=== PATIENT | female | born 2000 | race Caucasian/White ===

== ENCOUNTER 2021-03-08 09:00 | Outpatient (RCR) | payer BC, SELFPAY ==
--- NOTE | 2021-03-08 10:15 | BH.SGPN.GN ---
Behaviors/Verbalizations/Mental Status: []Eye contact is good. Motor activity is appropriate. Appearance is casual. Speech is Appropriate. Mood is anxious. Affect is constricted. Thoughts are linear and logical. No evidence of psychosis. Client Response/Progress/Benefit: []Pt was a passive participant in group discussion and activity. Attentive during psychoeducation on factors that build resilience. Peers defined resilience and also identified what could impact resilience which included: family, internal coping skills, beliefs, hope, and personality type. Pt reports reaching out for help and bravery make pt resilient. Pt benefited by increasing awareness on the role of resilience in mental health and factors that can help build resiliency. First day of IOP tx. Will continue IOP tx to prevent decompensation, learn healthy coping skills, and improve daily functioning. Narrative Note: []
--- NOTE | 2021-03-08 11:20 | BH.SGPN.GN ---
Behaviors/Verbalizations/Mental Status: []Client alert and oriented, neat and casually dressed and groomed. Eye contact good. Motor activity appropriate. Speech within normal limits. Affect constricted, mood anxious and depressed. Thoughts linear, logical, no signs of hallucinations or delusions. Client Response/Progress/Benefit: []Client new to IOP tx and responded well to session, engaged and attentive throughout. Client participated in the discussion of how each resiliency component can help increase personal resiliency, taking notes throughout. Client remained mostly passive but was able to work within the small group to identify ways to practice each of the resiliency traits reviewed. Client shared she would like to focus on improving resilience trait of ?nurturing a positive view of self? as she has struggled with this recently. Client would like to continue working on this resiliency trait by practicing more consistent use of positive self-talk statements. Appeared to benefit from reflecting on importance of each resilience trait and identifying strategies to strengthen resilience. Will continue IOP tx to maintain safety, further reduce anxiety and depression, and improve daily functioning. Narrative Note: []
--- NOTE | 2021-03-10 09:00 | BH.SGPN.GN ---
Behaviors/Verbalizations/Mental Status: []Eye contact is fair. Motor activity is appropriate. Appearance is casual. Speech is Appropriate. Mood is anxious. Affect is incongruent-smiling. Thoughts are linear and logical. No evidence of psychosis. Reviewed daily check in sheet and pt reports 2/5 for suicidal thoughts and 0/5 for intent. Client Response/Progress/Benefit: []Client responded well to session, receptive to feedback and engaged. Client reports feeling anxious this morning. Client stated her biggest stressor right now is worrying about school starting in the fall. Client stated she feels anxious in social situations and worries about her ability to do well. Client identified her positives as showing up to IOP, even thought groups make her anxious, and self-report of reduced suicidal ideations. Appeared to benefit from stepping out of her comfort zone and connecting with others. Will continue IOP tx to prevent decompensation, reduce SI, and gain healthy coping skills. Narrative Note: []
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
[2021-03-10 11:14] VITALS: BP 112/63; PULSE 75
--- NOTE | 2021-03-10 11:15 | BH.SGPN.GN ---
Behaviors/Verbalizations/Mental Status: []Client alert and oriented, casually dressed and groomed. Eye contact poor. Motor activity appropriate. Speech within normal limits. Affect constricted, mood anxious. Thoughts linear, logical, no signs of hallucinations or delusions. Client Response/Progress/Benefit: []Client passive participant in session AEB pt providing limited input during session however appeared to listen attentively to others . Client remained attentive during discussion about the 4 A's of managing stress and discussed connecting with the various benefits of each. Client reported she would like to work on the strategy of accepting that she can't control what's going on with her family. Client stated she will use thought challenge to help manage her stressors. Client seemed to benefit from increased awareness of the impact of stress on mental health and increasing repertoire of stress management strategies. Will continue IOP tx to prevent decompensation, decrease anxiety and increase healthy coping. Narrative Note: []
--- NOTE | 2021-03-10 12:28 | PCM.BH.PSYEV ---
Psychiatric Evaluation Initial Evaluation Initial Evaluation: History of Present Illness: [] The patient is a 20-year-old single female who was referred to the [facility] behavioral health IOP program by her psychiatrist due to worsening depression and anxiety. The patient was recently admitted to a psychiatric unit in November 2020. At that time she attempted suicide by taking an overdose of Tylenol but was not in the ICU. In January 2021 the patient attempted suicide by taking a handful of Lexapro but she told her mother but no one else and did not receive treatment for this. She currently lives with her parents and her 26-year-old sister and they get along well. She is currently working at a [employer] for the past year but she starts a new job in a few days at [employer] which she is looking forward to. The patient cannot identify any triggers to either of her suicide attempts. She states that her depression was worsening in the past month until few days ago when she started feeling a little better because she got 3 kittens and loves animals. She is enjoying being with her kittens but not much else right now. She graduated high school 1 year ago but did not attend college. 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 Other stressors include her recent job because it was social and the patient has significant social anxiety. She has been having some trouble doing her activities of daily living lately. She endorses feeling worthless but denies hopelessness. She also denies guilt. She describes her mood as sad and sometimes she cries. She has low motivation and has been isolating herself. Her sleep is okay at 8 hours a night and her energy level, appetite and concentration are all normal. She admits to passive, fleeting suicidal ideation for the past 4 days. She has had only passive suicidal thoughts since February 12, 2021 when she made her second suicide attempt. She denies a plan for suicide also. She has a history of cutting and her most recent episode of cutting was in November just before her psychiatric admissions. This was on her hip but no stitches were required. She has not been exercising but used to enjoy riding her bike. She is a worrier by nature and has severe social anxiety since she was a child. She denies active suicidal ideation, plan for suicide, homicidal ideation, hallucinations, delusions or symptoms of codie. She also denies panic attacks, OCD, eating disorder, trauma, PTSD or seizure. Current Psychiatric Medications: [] Lexapro 20 mg p.o. daily (started 2 weeks ago and the dose was increased to 20 mg 1 week ago); Abilify 10 mg p.o. daily (was on 15 mg of Abilify since her admission in November 2020 and her doctor is currently weaning her off the Abilify after starting Lexapro). Past Psychiatric History: [] The patient had 1 psychiatric admission in November 2020 with depression and a suicide attempt by overdose on Tylenol. She has had 2 suicide attempts overall and the second 1 was in January 2021 which was a suicide attempt by overdose on a handful of Lexapro for which no treatment was obtained. She has had counseling since age 18 and at that time she had a for about 1 year. She then stopped counseling and restarted it after her psychiatric admission in November 2020. She is currently seeing her counselor once a week and has found this to be helpful. She has a psychiatrist which she has had for less than 1 month. She was first depressed around age 12 and 6 grade and she took her first medications at age 20 in November 2020. She first cut herself at age 14 and has cut on and off since then but has never required stitches. She uses a scissors to cut herself. She bruised herself 1 time 3 years ago only. Her past medications include only Abilify and her current medication Lexapro. Substance Use History: [] Non-smoker. No vaping. No marijuana use. No drugs ever. No alcohol use. No rehab ever. Allergies: [] No known allergies Medications: [] Synthroid plus psych meds as above. Past Medical History: [] Hypothyroidism diagnosed in October 2020; no other illnesses or surgeries. She is a 0 para 0 with regular menstrual periods and is not sexually active and is not on any control. Family Psychiatric History: [] Mother is 50 years old and father is 52 years old and they are healthy. Father and sister have anxiety. Mom, maternal grandfather and brother have depression. Mom had 1 suicide attempt in the past when she was around 20. Patient has a second cousin on her mother side who committed suicide. No substance issues known in the family. Personal/Social History: [] The patient was born and raised in [place] and describes her childhood as good. Her parents are in were and are loving. The patient is the youngest child and she has a brother 5 years older, sister 7 years older, a brother 10 years older than her. She is close to her sister. She denies any physical, verbal or sexual abuse ever. School was hard for her because of her social anxiety but she denies separation anxiety. She had friends in school and graduated high school. 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 She has worked several jobs including [employer] for a year and [employer] in the past and she plans to return to [employer] in a few days. She identifies as heterosexual but has never had any serious boyfriends and is not sexually active. Legal History: [] Review of Systems: [] Vital Signs: [] Mental Status Examination: [] Diagnoses: [] Crockett I: [] Crockett II: [] Crockett III: [] Crockett IV: [] Plan: []
--- NOTE | 2021-03-10 12:38 | PCM.BH.PSYEV ---
Psychiatric Evaluation Initial Evaluation Initial Evaluation: Continuing initial psychiatric evaluation. Legal History: [] No arrests. Has route salesman and driver's license. No DUIs. No . Review of Systems: [] Negative except as noted in present illness. Vital Signs: [] Reviewed in nurses notes. Mental Status Examination: [] Patient is a 20-year-old female who is seen wearing a mask due to the pandemic and is casually dressed and groomed with good hygiene. She has no psychomotor agitation or retardation. Eye contact is good and speech is normal rate and rhythm and fluent with no pressure. Mood is depressed. Affect is constricted. Thought process is goal-directed and organized. Thought content: There is evidence of passive, fleeting suicidal ideation. There is no evidence of passive thoughts of . There is no evidence of active suicidal ideation, plan for suicide, homicidal ideation, hallucinations or delusions. Reality testing is intact. Intelligence is average. Judgment is intact. Insight: Limited. Impulsivity: High. Diagnoses: [] 1. Major depressive disorder, recurrent, severe without psychosis 2. Social anxiety disorder (F 40.11) 3. Generalized anxiety disorder 4. Cluster B traits 5. Recently diagnosed hypothyroidism 6. Work, school issues, primary support Plan: [] The patient will start the behavioral health IOP program at [facility] as the structure, support, education, and group therapy will hopefully prevent worsening of the patient's symptoms which might require rehospitalization. She felt safe during the interview and if it anytime she does not feel safe she will let us know or go to the emergency room. The risks, options, possible complications and side effects of medications were discussed with the patient and she understands accepts these. No medication changes were made today as her Lexapro was increased 1 week ago. She will continue to wean her Abilify as ordered by her outpatient psychiatrist. She agrees to try to ride her bike or walk in order to help improve her mood. She will continue to follow-up with outpatient providers. I will see the patient in follow-up in 1 to 2 weeks.
--- NOTE | 2021-03-10 12:47 | BH.DR.ITP ---
Initial Treatment Plan Patient Information Visit Information: ADMISSION DATE: EXPECTED LOS: 4-6 weeks Problems/Symptoms Problem #1:: Depression Symptom:: Sadness, crying, lack of motivation, isolation, anhedonia, passive fleeting suicidal ideation Problem #2:: Anxiety Symptom:: Worry, avoidance of social functions, rumination
--- NOTE | 2021-03-11 09:01 | BH.SGPN.GN ---
Behaviors/Verbalizations/Mental Status: []Pt eye contact good, casually dressed, motor activity appropriate, speech normal rate and tone, mood anxious, congruent affect, thoughts linear and intact, no evidence of delusions or hallucinations. Reviewed client?s symptom tracker, pt indicates a 2/5, with 5 being severe, for suicidal thoughts and a 0/5 for suicidal intent. This is below pt's suicidal baseline for suicidal thoughts. Client Response/Progress/Benefit: []Pt responded well to session AEB pt listening attentively to peers, and openly sharing thoughts and feelings. Pt identified mental health positive as attending IOP. Additional mental health positive as distracting self from suicidal thoughts last night. pt reported current stressor is college classes starting in March. pt reported anxious about having to start school. Pt seemed to benefit from support from peers. Progress noted with pt using skills to successfully manage suicidal thoghts. Pt to continue IOP to increase healthy coping, increase confidence and prevent decompensation. Narrative Note: []
--- NOTE | 2021-03-11 10:02 | BH.SGPN.GN ---
Behaviors/Verbalizations/Mental Status: []Eye contact is good. Motor activity is appropriate. Appearance is casual. Speech is Appropriate. Mood is anxious and depressed. Affect is congruent. Thoughts are linear and logical. No evidence of psychosis. Client Response/Progress/Benefit: []Pt was an attentive participant though mostly passive throughout group discussion, willingly engaged during activity. Attentive during psychoeducation and taking notes. Reflected connecting with topic of personal pitfalls and how they can impede mental health treatment progress. Continuing to adjust to treatment environment and so reports struggling to provide active input. Pt and peers provided examples of personal pitfalls or setbacks that impact mental health which included; isolation, avoidance, procrastination, denial, poor self-care, and ruminating on externals. During experiential activity pt along with peers identified several pitfalls from the activity that are also associated with mental health which included; poor communication, assumptions, lack of awareness, negative self-talk, fear of failure, and personalizing. Did well to engage more during the activity. Benefited from group by increasing awareness of pitfalls which can impact mental health. Pt will continue in IOP to maintain safety, continue to provide a supportive environment, further improve mood stability, and promote healthy skill application. Narrative Note: []
--- NOTE | 2021-03-11 11:00 | BH.SGPN.GN ---
Behaviors/Verbalizations/Mental Status: []Client alert and oriented, casually dressed and groomed. Eye contact good. Motor activity appropriate. Speech within normal limits. Affect congruent, mood anxious and content. Thoughts linear, logical, no signs of hallucinations or delusions. Client Response/Progress/Benefit: []Client receptive of session, engaged throughout AEB client actively listening and contributing to discussion, as well as taking notes. Client completed worksheet identifying personal pitfalls impacting mental health progress. Client identified the following pitfalls: isolation, not communicating her emotions with supports, and mind-reading. Group learned different coping skills to help manage pitfalls. Client will work on overcoming isolation by going outside when she is feeling depressed. Appeared to benefit from identifying personal pitfalls and strategies to overcome these pitfalls. Will continue IOP tx to prevent decompensation, learn healthy coping skills, and increase self-awareness. Narrative Note: []
--- NOTE | 2021-03-11 14:11 | BH.MDN_ITS ---
Multi-Disciplinary Note - Note 30-min Individual Time Started:: 11:55 Date: 03/11/21 Purpose of session/treatment goals addressed:: The purpose of this session was to gather information on client's current stressors, symptoms, mental health tx hx, and treatment goals. Another goal was to build rapport and provide psychoeducation. Eye Contact:: Good Motor Activity:: Appropriate, Restless Appearance:: Neat, Casual Speech:: Appropriate Mood:: Anxious Affect:: Congruent Thoughts:: Linear, Logical, No evidence of hallucinations/delusions noted Staff Interventions:: Therapist used active listening and asked open-ended questions to explore client's current stressors, symptoms, history, and treatment goals. Therapist used strengths perspective to build rapport, identify resilience factors, and provide emotional support. Therapist provided psychoeducation on cognitive distortions and mental health. Therapist gave client encouragement and normalized the impact that mental health has on functioning. Client Response:: Client responded well to session, open to meeting with therapist. Client was referred to the [facility] program by her outpatient psychiatrist due to worsening depression and anxiety. Client reports that she has struggled with depression since the age of 12 and began cutting herself with scissors around age 14. Reports doing so ?off and on? since that time. Reports first seeing a counselor for her mental health around age 18 for about a year and began receiving counseling again in November after attempting to overdose on Tylenol. Reports she was admitted at the time and had her stomach pumped. She began working with [facility] [id number] in [place] for outpatient psychiatry and counseling following this attempt. However, in January again attempted overdose, this time with her psychiatric medications. Reports she vomited the medication up and did not seek medical care afterwards. Client appears to have poor insight into her own triggers as she reports not really knowing what led to the attempts. Reports having a positive relationship with her parents and older sister whom she lives with. Only stressor identified is her brother as he is struggling with his own mental health and has been estranged from the family as a result as he does not wish to seek treatment. Client reports that he moved out of the house approximately 6 months ago. Noted that although things have been less stressful since he moved out, she worries about him. Additionally, noted beginning a new job at [employer] and is working with her best friend. Shared that she enjoys this job but at times struggles with anxiety about being around other people while at work. Discussed wanting to improve daily functioning, reduce suicidal ideation, and find more ways of effectively coping. Client noted struggling with assuming others do not like her or are judging her and was receptive of psychoeducation introducing cognitive distortions. Willing to review and identify common distortions she uses for homework Risks/Concerns:: Client denies any active suicidal ideations, plan, and intent as of 03/11/21. Protective factors include healthy supports and goals for her future. Reports motivation to improve mental health sx management. Progress Toward Goals/Plan:: Client's first week of IOP, reports she is finding the supportive group environment to be helpful and that she has been able to relate to others in the program. Client endorses some anxiety about sharing in the group environment. Endorses a depressed mood, anhedonia, apathy, recent self-harming urges, low self-esteem, ruminations, and constantly feeling anxious. Client's symptoms have been impacting her social functioning and ability to function at baseline. Will continue IOP tx to prevent decompensation, reduce intensity of symptoms, and improve daily functioning. Time Stopped:: 12:13
--- NOTE | 2021-03-11 14:13 | BH.MTP ---
Master Treatment Plan - Patient Information Program Physician:: Dr. Ly Lawson Primary Therapist:: JAMES Menon - Psychiatric Diagnoses Psychiatric Diagnoses:: 1. Major depressive disorder, recurrent, severe without psychosis. 2. Social anxiety disorder (F 40.11). 3. Generalized anxiety disorder Diagnosis Code(s):: F40.11, F33.2 - Estimated LOS Estimated LOS (in weeks):: 6 Problem/Goal #1 - Problem/Goal #1 Stated Goal:: Client will reduce depressive symptoms, self-harm and SI, and negative self-talk due major depressive disorder. Description of Barriers: Client has a history of two previous suicide attempts and she reports a history of self-harming behaviors. Client states knowledge of few healthy coping skills. Client has history of past treatment inconsistency and negative thought patterns that reinforce depression. Functional Impact: Client is a 20-year-old female with a history of MDD and Social Anxiety Disorder. Client has history of two previous suicide attempts with one resulting in hospitalization. Most recent attempt being 01/2021. Client was referred to [facility] by her outpatient psychiatrist due to worsening suicidal ideation and depression, with limited benefit from traditional counseling. Client has a long-standing history of depression and new history of SI beginning in November of this past year in which client had her first overdose attempts. Denies any current plan or intent. Client endorses apathy, low energy, low motivation, hopelessness, anhedonia, rumination, worry, and avoidant behaviors. Client also uses cutting to cope with mental health symptoms and stressors. Client's symptoms have been impacting her ability to function at home, socially, and at work. Goal Relevant Strengths/Supports: Client is established with outpatient services through [facility]. Client appears to be open to learning healthy coping skills and improving her mental health. - Objectives Objective #1 Stated Objective: Client will learn and utilize 2-3 healthy coping strategies to better manage depressive symptoms as shown by reduced DSM-5 scores. Interventions: Through group and individual sessions, therapist will help client identify triggers and warning signs of depression. Therapist will teach client various coping skills to manage her symptoms and give client tangible resources to use to regulate emotions. Therapist will provide psychoeducation on cognitive distortions and maintenance cycles and strategies to break unhealthy maintenance cycles Discharge Criteria: Client will have met this goal when she can report learning and using at least 2 coping skills to manage depressive symptoms and show a reduction in DSM-5 symptoms. Target Date: 04/21/21 Review Date: 04/07/21 Objective #2 Stated Objective: Client will identify 2 triggers and 2 coping skills to use when client experiences mood dysregulation and has increased urges to engage in unhealthy coping skills. Interventions: Through individual and group counseling client will be provided with education on healthy coping skills to manage mood symptoms, impulse, and crisis behaviors. Therapist will provide information on healthy alternatives to emotion release. Therapist will also engage client to use self-compassion while working to change behaviors. Discharge Criteria: Client will have accomplished this goal when client can identify at least 2 triggers and 2 coping skills to increase mood stability and reduce unhealthy action urges. Target Date: 04/21/21 Review Date: 04/07/21 Problem/Goal #2 - Problem/Goal #2 Stated Goal:: Client will reduce anxiety symptoms while increasing ability to function on daily basis. Description of Barriers: Client has a history of two previous suicide attempts and she reports a history of self-harming behaviors. Client states knowledge of few healthy coping skills. Client has history of past treatment inconsistency and negative thought patterns that reinforce depression. Functional Impact: Client is a 20-year-old female with a history of MDD and Social Anxiety Disorder. Client has history of two previous suicide attempts with one resulting in hospitalization. Most recent attempt being 01/2021. Client was referred to [facility] tx by her outpatient psychiatrist due to worsening suicidal ideation and depression, with limited benefit from traditional counseling. Client has a long-standing history of depression and new history of SI beginning in November of this past year in which client had her first overdose attempts. Denies any current plan or intent. Client endorses apathy, low energy, low motivation, hopelessness, anhedonia, rumination, worry, and avoidant behaviors. Client also uses cutting to cope with mental health symptoms and stressors. Client's symptoms have been impacting her ability to function at home, socially, and at work. Goal Relevant Strengths/Supports: Client is established with outpatient services through [facility]. Client appears to be open to learning healthy coping skills and improving her mental health. - Objectives Objective #1 Stated Objective: Client will identify 2-3 cognitive distortions that lead to rumination and learn 2-3 ways to manage these thoughts to better manage anxiety Interventions: Therapist will provide education on the most common cognitive distortions and teach client the connection between thoughts, emotions, and feelings. Therapist will assist client in identifying, challenging, and replacing dysfunctional thoughts with positive, more realistic thoughts. Therapist will use CBT and DBT techniques to help client gain awareness of thinking errors and learn how to more effectively handle negative thoughts. Therapist will also use self-compassion to help client set more realistic expectations for herself. Discharge Criteria: Client will have accomplished this goal when can identify at least 2 cognitive distortions and at least 2 coping skills to manage negative thoughts. Target Date: 04/21/21 Review Date: 04/07/21 Objective #2 Stated Objective: Client will identify 2-3 anxiety triggers and 2 coping skills to use when feeling anxious to manage anxiety as shown by decreasing her avoidance behaviors and DSM-5 scores for anxiety. Interventions: Therapist will provide education on anxiety, avoidance behaviors, and maintenance cycles. Therapist will help client explore personal symptoms and warning signs of anxiety. Therapist will teach client coping skills to improve emotional regulation, mindfulness, and distress tolerance to help client cope with anxiety in the moment. Discharge Criteria: Client will have accomplished this goal when she can identify at least 2 triggers and report using 2 coping skills to manage anxiety. Additionally, client will have accomplished this goal when her avoidance behaviors and DSM-5 scores show a reduction. Target Date: 04/21/21 Review Date: 04/07/21
--- NOTE | 2021-03-15 09:00 | BH.SGPN.GN ---
Behaviors/Verbalizations/Mental Status: []Client alert and oriented, neatly dressed and groomed. Eye contact good. Motor activity appropriate. Speech within normal limits. Affect congruent, mood euthymic. Thoughts linear, logical, no signs of hallucinations or delusions. Reviewed client?s symptom tracker. Client was 2/5 for thoughts of suicide and 0/5 for risk of suicide. Future oriented and positive today. Client Response/Progress/Benefit: []Client responded well to session, attentive and engaged. Client reports feeling hopeful this morning. Client's check-in was brief, but client had a couple of wins over the weekend. Client shared she got to hear from her brother who hasn't really been in my life lately and client has been working through her suicidal ideations. Client reports she has been using self-talk and support from friends to help client reduce SI and negative thinking. Client did not report any stressors today. Appears less anxious in group setting as she is talking more often and laughing with peers. Appeared to benefit from connecting with others and reflecting on wins. Will continue IOP tx to prevent decompensation, learn healthy coping skills, and improve daily functioning. Narrative Note: []
--- NOTE | 2021-03-15 10:15 | BH.SGPN.GN ---
Behaviors/Verbalizations/Mental Status: [] Eye contact is good. Motor activity is appropriate. Appearance is casual. Speech is Appropriate, soft, limited input provided. Mood is anxious. Affect is constricted. Thoughts are linear and logical. No evidence of psychosis. Client Response/Progress/Benefit: [] Pt was an attentive participant in group discussion and activity, mostly passive throughout though taking notes. Attentive during psychoeducation on external coping skills and how coping skills can positively and negatively impact mental health. Pt listening as peers provided their thoughts and insights on the definition of coping skills. Continues to struggle with anxiety about engaging in group setting. Pt listening to peers identify barriers to using healthy coping skills which included; it?s easier, comfortable, habitual, or they don?t know other ways of coping. More engaged and willing to work within small group to complete challenge activity requiring use of several coping skills. Did well to provide and receive supportive feedback. Benefited from increased awareness of coping skills, benefits in using healthy coping skills, and common coping skill barriers. Will continue in IOP to maintain safety, continue to decrease anxiety, stabilize mood, and increase heathy coping. Narrative Note: []
--- NOTE | 2021-03-15 11:15 | BH.SGPN.GN ---
Behaviors/Verbalizations/Mental Status: []Client alert and oriented, casual dress, hygiene tended to. Eye contact fair. Motor activity appropriate. Speech within normal limits. Affect constricted, mood anxious. Thoughts linear, logical, no signs of hallucinations or delusions. Client Response/Progress/Benefit: []Client responded well to session, actively listening and providing examples. Group discussed the different categories of coping skills which included distraction, emotional release, grounding, self-love, and thought challenging. Client participated in creating a coping skills ?menu? from the five categories of coping skills. Client's coping skill menu included: walking, exercise, positive affirmations, and breathing techniques. Appeared to benefit from increasing repertoire of healthy coping skills. Will continue tx to improve self-esteem, increase healthy coping and prevent decompensation.
--- NOTE | 2021-03-17 07:55 | BH.MDN ---
Multi-Disciplinary Note - Note 45-min Individual Time Started:: 10:35 Date: 03/17/21 Purpose of session/treatment goals addressed:: To work on goal #1 & #2 of client's tx plan by reviewing and practicing reframing distortions client identified for homework . Another goal was to provide psychoeducation on safety behaviors, exposure therapy and the fear ladder. Eye Contact:: Good Motor Activity:: Appropriate Appearance:: Neat, Casual Speech:: Appropriate Mood:: Anxious, Depressed Affect:: Congruent Thoughts:: Linear, Logical, No evidence of hallucinations/delusions noted Staff Interventions:: Therapist used active listening and asked open ended questions to gather information regarding current sx, stressors, and common distortions identified. Therapist helped client identify impacts of distortions she uses on her mental health and worked to challenge and reframe identified distortions. Therapist provided psychoeducation on exposure therapy and provided client with a fear ladder exercise to complete for homework. Client Response:: Client responded well to session, open to meeting with therapist. Client stated that the past few days had been ?rough? but that she is feeling better today. Shared that she has been experiencing increased suicidal ideation about ?slitting my wrists? but denies any plan or intent. Noted taking steps to reach out to supports, play with her cats, and use positive self-talk when feeling this way which had been helpful. Upon further discussion, Client shared a primary trigger for her suicidal thoughts is ongoing difficulties in managing social anxiety. Client explained ?I don?t like who I am or my personality. I?m too shy, I want to be more outgoing?. Worked with therapist on reviewing the distortions client identified for homework and identifying how her distorted thoughts reinforce social anxiety which results in increase SI. Client Connected with psychoeducation reviewing cognitive triangle and identified that distorted thoughts of ?what if people think I sound stupid or what I say isn?t right?? cause client not to speak up which reinforces negative thoughts about self. Receptive of beginning to work with therapist on challenging and replacing these distortions, noting ?I wouldn?t election judge someone else if they messed up or thing that they?re stupid so there?s no evidence that they would think that about me?. Noted wanting to work on reducing social anxiety as she feels this will aid in improving self-confidence and decrease depressive sx. Client was engaged as therapist provided psychoeducation reviewing safety behaviors and discussing the role of exposure in reducing anxiety. Client expressed desire to work on slowly improving her ability to handle social situations, though expressed some apprehension about taking the steps towards doing so. Therapist and client discussed skills for calming herself and sitting with the uncomfortable throughout the process. Client was open to start off by creating a fear ladder to begin identifying appropriate small exposure goals. Will complete fear ladder for homework. Risks/Concerns:: Client expressed experiencing intrusive thoughts of ?slitting my wrists? over the weekend. Indicates that these thoughts were passive in nature and lasting no longer than a few seconds. Reports she was able to easily control them and reached out to her supports as well as used her cats to distract her. Reports she has not had any thoughts since Monday. Upon further assessment for safety, client denies any active suicidal ideations, plan, or intent as of 03/17/21. Client reports an ability to maintain safety and is future oriented. Protective factors noted. Willing to go to ED or contact crisis if unable to maintain safety at any time. Progress Toward Goals/Plan:: Client admits to some regression of symptoms over the weekend in which she reports experiencing increased suicidal ideation and intrusive thoughts of . Reports however that instead of ignoring or acting on these thoughts she was able to utilize some of the skills she has learned in IOP tx. Reports reaching out to her supports and playing with her kittens which was helpful. This is progress as client has impulsively acted on suicidal thoughts in the past. Denies any current plan or intent. Client continues to endorse negative self-talk, distorted thinking patterns, isolation, and avoidance which reinforce both her sx of anxiety and depression. Client continues to struggle with social anxiety which has impacted her overall engagement in the group setting and has resulted in client feeling guilty about not participating more. Insight continues to be fair and client is often unable to identify specific skills for challenging distortions or calming herself when feeling overwhelmed. Client continues to endorse low energy, negative self-talk, apathy, loneliness, and lack of motivation. Client will continue IOP tx to maintain safety, prevent further reduce anxiety and depression, and increase the use of healthy coping skills. Time Stopped:: 11:17
--- NOTE | 2021-03-17 09:00 | BH.SGPN.GN ---
Behaviors/Verbalizations/Mental Status: [] Eye contact is fair. Motor activity is appropriate. Appearance is casual. Speech is Appropriate, soft. Mood is depressed and anxious. Affect is constricted. Thoughts are linear and logical. No evidence of psychosis. Reviewed daily check in sheet, reports of suicidal ideations as 3/5 which is slightly elevated compared to baseline of 2/5. Denies plan or intent. Therapist will check-in individually to further assess risk. Client Response/Progress/Benefit: [] Pt was an attentive participant AEB actively listening, as well as willingness to process with group. Client reports emotion for the day as ?tired?. Noted ?I don?t know what to say?, but then went on to identify several positives and areas of progress with prompt. Progress includes: reduced suicidal ideation and increased willingness to reach out to supports during times of difficulty, positive self-talk, and using opposite action. Shared she continues to struggle with knowing what to do when she is feeling depressed but is able to see some progress in this area. Shared wanting to continue to work on improving healthy coping and self-esteem. Benefited from group support, encouragement, and feedback. Will continue in IOP to maintain safety, further promote healthy coping behaviors, and prevent decompensation. Narrative Note: []
--- NOTE | 2021-03-17 11:15 | BH.SGPN.GN ---
Behaviors/Verbalizations/Mental Status: [] Eye contact is good. Motor activity is appropriate. Appearance is casual. Speech is Appropriate. Mood is depressed. Affect is flat. Thoughts are linear and logical. No evidence of psychosis. Client Response/Progress/Benefit: [] Pt did not participate in group discussion and choose not to shared when prompted. Attentive during entire group discussions and did nod in agreement at times. Unsure if pt benefited due to limited participation. Will continue in IOP to maintain safety, increase healthy coping skills, and improve functioning. Narrative Note: []
--- NOTE | 2021-03-22 08:57 | BH.SGPN.GN ---
Behaviors/Verbalizations/Mental Status: []Eye contact is fair to good. Motor activity is appropriate. Appearance is casual. Speech is Appropriate, soft. Mood is anxious and dysthymic. Affect is constricted. Thoughts are linear and logical. No evidence of psychosis. Reviewed daily check in sheet and client reports suicidal ideations as 2/5 which is slightly below baseline, denies plan or intent. Client Response/Progress/Benefit: []Pt was an attentive participant AEB actively listening, nodding throughout, as well as willingness to process with group. Pt reports emotion for the day as ?tired but hopeful? and discussed this is related to an overall improvement in her mood and reduction of suicidal thoughts since last week. Pt reports that she is unsure why her mood has improved and struggled to identify skills she is using to reduce depression and suicidal ideation. Upon further elicitation, pt able to identify spending more time with her supports as one potential contributing factor. Client continues to struggle with insight regarding her mental health and what contributes to changes in overall mood/emotions. Would benefit from continued focus in this area. Pt benefited from group support, encouragement, and feedback. Will continue in IOP tx to continue to improve mood stability, further promote healthy coping behaviors, and prevent decompensation. Narrative Note: []
--- NOTE | 2021-03-22 10:10 | BH.SGPN.GN ---
Behaviors/Verbalizations/Mental Status: [] Eye contact is good. Motor activity is appropriate. Appearance is casual. Speech is Appropriate. Mood is depressed. Affect is flat. Thoughts are linear and logical. No evidence of psychosis. Client Response/Progress/Benefit: [] Pt participated when prompted in group discussion. Attentive during psychoeducation. Attentive while peers provided insight on obstacles or potholes that hinder our ability to communicate in stressful situations. Group identified the following obstacles; impulsivity (reacting to fast to comments and situations), mental health struggles, physical health struggles (headaches, pain, poor sleep), toxic or unhealthy relationship patterns, work/responsibilities (feeling overwhelmed), lack of proper self-care on our part, and negative thinking patterns (mind-reading, catastrophizing). Pt did well in her role in the experiential activity and was able to communicate effectively with peers. Benefited from increased awareness on how our emotions impact our communication. Will continue in IOP to maintain safety, increase healthy coping skills, and to prevent decompensation. Narrative Note: []
--- NOTE | 2021-03-22 11:10 | BH.SGPN.GN ---
Behaviors/Verbalizations/Mental Status: []Client alert and oriented, casually dressed and groomed. Eye contact good. Motor activity appropriate. Speech within normal limits. Affect constricted, mood anxious and dysthymic. Thoughts linear, logical, no signs of hallucinations or delusions. Client Response/Progress/Benefit: []Client engaged in session AEB client listening attentively to peers and providing input. Attentive during psychoeducation on 4 zones of regulation. Client able to identify feelings and behaviors for each zone. Client identified coping skills one can use to support self in each zone which included: opposite action, exercise, journaling, reaching out to support, and grounding skills. Client stated belief that she is in the blue zone today because client feels hopeless and tired. Client stated she plans to reach out to her supports and get out of the house today to improve her mood. Benefited from increased education on zones of regulation or stages of alertness for emotions and healthy coping skills to use for each zone. Will continue IOP tx to reduce negative thinking patterns, increase the use of healthy coping skills, and improve daily functioning. Narrative Note: []
--- NOTE | 2021-03-25 08:55 | BH.SGPN.GN ---
Behaviors/Verbalizations/Mental Status: []Eye contact is fair. Motor activity is appropriate. Appearance is casual. Speech is Appropriate, limited input. Mood is depressed and anxious. Affect is constricted. Thoughts are linear and logical. No evidence of psychosis. Reviewed daily check in sheet and client suicidal ideations reported as 2/5 which is consistent with baseline, denies plan or intent. Client Response/Progress/Benefit: []Pt was an attentive participant AEB actively listening as well as nodding while fellow participants shared with the group. Client did not provide any input throughout and declined to process with the group. Continues to display difficulties with engagement due to anxiety which could impede progress in achieving IOP tx goals. Narrative Note: []
--- NOTE | 2021-03-25 10:11 | BH.DS_ITS ---
Discharge Summary - Demographics Date of Admission:: 03/08/21 Discharge Date: 03/25/21 Presenting Problems at Admission:: Client is a 20-year-old female with a history of MDD and Social Anxiety Disorder. Client has history of two previous suicide attempts with one resulting in hospitalization. Most recent attempt being 01/2021. Client was referred to [facility] by her outpatient psychiatrist due to worsening suicidal ideation and depression, with limited benefit from trad itional counseling. Client has a long-standing history of depression and new history of SI beginning in November of this past year in which client had her first overdose attempts. Denies any current plan or intent. Client endorses apathy, low energy, low motivation, hopelessness, anhedonia, rumination, worry, and avoidant behaviors. Client also uses cutting to cope with mental health symptoms and stressors. Client's symptoms have been impacting her ability to function at home, socially, and at work. Discharge Diagnoses:: Major depressive disorder, recurrent, severe without psychosis. 2. Social anxiety disorder (F 40.11). 3. Generalized anxiety disorder Reason for Discharge:: Client voluntarily discharged from [facility] as she does not feel group therapy is a ?good fit? for her mental health needs. Reports feeling anxious and overwhelmed in the group setting and would prefer to continue with counseling on an individual outpatient basis until developing the skills to better manage anxiety in social settings. Client is already established with outpatient psychiatric and counseling providers. Most recently seen by outpatient psychiatry 03/18/21 and has an appointment with her outpatient counselor 03/29/21. - Treatment Progress During Treatment & Response: Limited progress due to length of time in [facility] program and inconsistent attendance. Client has no showed for 2 of the 8 sessions she has been scheduled for since admission. When in attendance, client often struggled with severe anxiety which prohibited her ability to actively engage in the group setting> Often opted not to share or provided minimal input. Client did well to engage more in individual sessions and successfully completed all homework provided. While progress was limited she did report decreased depression and increased functioning. Denies any active SI, plan, or intent and reports improved overall mood since her medication were changed, Reports spending more time with supports. While reduction noted she continued to report mental health symptoms impacting functioning, specifically severe social anxiety which ultimately resulted in client voluntarily discharging form [facility] to pursue counseling on an individual basis. Despite anxiety, client was able to begin working at a new job while in the IOP program. Issues Still to be Addressed:: Anxiety, panic, mental health impacting ability to function, avoidance, depression, boundary setting. Her noncompliance with treatment and appts is a significant obstacle to progress. Discharge Recommendations/Instructions:: Pt is currently linked with Dr. Sherwood at [place] [id number] for psychiatry and counseling. Recommended to follow up with these providers. Next counseling appointment scheduled for 03/29/21. Discharge Handout: Complete Discharge Handout with client on aftercare options and continuity of care.
--- NOTE | 2021-03-30 08:05 | BH.PSA ---
Source of Information - Presenting Problems/Circumstances Problems, Referral Source, Mental Status, Client: The patient is a 20-year-old female who was referred to the [facility] behavioral health IOP program by her psychiatrist due to worsening depression and anxiety following 2 suicide attempts in November and January of this year. At time of admission, client denies any active suicidal ideation, plan, or intent. Psychiatric Presentation - Psych Issues & Need for Admission Psychiatric Issues:: Depression, social anxiety, panic, suicidal ideation Past Psychiatric History - Treatment Hx Treatment History: She has had counseling since age 18 and at that time she had a for about 1 year. She then stopped counseling and restarted it after her psychiatric admission in November 2020. She is currently seeing her counselor once a week at [place] [id number] and has found this to be helpful. She has a psychiatrist which she has had for less than 1 month. CLient has been hospitalized for psychiatric reasons once in November 2020 with depression and a suicide attempt by overdose on Tylenol. First hospitalization:: November 2020 following SA via Tylenol overdose Most recent hospitalization:: November 2020 following SA via Tylenol overdose Medication Trials:: Yes - Laure Andrea Age of first mental health symptoms: Reports she first felt depressed around age 12 and is unsure of what may have triggered this. Reports she began self-harming via cutting. Describe (age, circumstance, etc) any past hospitalizations: Hospitalized in November 2020 following suicide attempt via Tylenol overdose. Denies any prompting event or trigger. Current providers for mental health treatment (counselor, psychiatrist, adult protective caseworker, etc.): [phone] for both outpatient counseling and psychiatry Development & Family of Origin - Childhood Significant Childhood Events: Denies any significant childhood events. Reports her parents were loving and she got along with her siblings. CLient has a brother 5 years older, sister 7 years older, a brother 10 years older than her. She is close to her sister. Stated her brother has cause some family discord recently but this has only newly occurred. CLient reports school was difficult due to social anxiety but that she was able to make friends. - Family Who currently lives in your home?: Client lives with her parents and her 26-year-old sister and they get along well. Describe family composition:: CLient has a brother 5 years older, sister 7 years older, a brother 10 years older than her. She is close to her sister. Her parents remain and have been clients entire life - Family History Family Hx of Psychiatric or AOD Problems: Father and sister have anxiety. Mom, maternal grandfather and brother have depression. Mom had 1 suicide attempt in the past when she was around 20. Patient has a second cousin on her mother side who committed suicide. No substance issues known in the family. Ethnicity - Sexuality Sexual Orientation: Heterosexual Spirituality - Denominational Do you currently identify with any organized buddhist?: Bahai - Beliefs Is there a particular form of support from this community you can use for your recovery?: Yes Mental Status - Memory Recent Memory: Good Remote Memory: Fair - Concentration Concentration: Fair - Eye Contact Eye Contact: Fair - Speech Speech: Articulate, Congruent - Thought Process Thought Process: Logical Insight: Fair Judgment: Fair Behavior: Anxious - Orientation Orientation: Person, Place, Situation - Appearance Appearance: Appropriate - Mood Mood: Anxious, Depressed - Affect Affect: Appropriate/calm Suicide Assessment - Suicidal Ideation Have you ever felt like hurting yourself?: Yes Please explain:: hx of self-harming via cutting since age 14. None recently. Hx of 2 prior suicide attempts in November and January of 2021 via overdose. Was only admitted for attempt in November 2020 Were you using ETOH/drugs at the time?: No Suicidal Intentional Rating Scale (SIRS): Current suicidal thoughts/No plan/Contracts for safety Physician Notification: If Active suicidal thoughts/Will not contract for safety is checked, contact physician and document in the Physician Notification section below. Violent Behavior/Abuse History - Homicidal Ideation Do you have any homicidal thoughts? If so, explain:: No Is there a known potential victim? If yes, who:: No - Abuse Have you ever been abused?: No - Life Events Are there any other significant life events?: Hardships - CLient reports her older brother struggles with paranoia and has cause significant relationship discord between himself and his parents which is a stressor for client - Safety Do you ever feel threatened in your home? If yes, describe:: No Adult Social History - Age 19 to Present Describe your current support system:: Reports her mother as her primary support and has several friends whom she is close with. Attends counseling weekly through [place] [id number] Substance Use - Substance Substance Use Type: None - Specific Drugs What specific drugs have you used?: denies - IV Substance Use Do you have a history of IV use?: denies Leisure/Social Activities - Interests What do you enjoy or might be interested in learning about?: enjoys being outdoors, bike riding, animals, and is interested in learning more about grounding/mindfulness as well as ways to reduce social anxiety Education & Occupational Histo - Education What is your level of education?: High School Do you have any learning disabilities?: No - Occupation List any current or past employment:: previously worked at [employer] and currently is employed at [employer] - Service Have you ever been in the ?: No Legal History - Records Have you had any past legal charges?: No Do you have any current legal charges?: No Have you ever been incarcerated? If yes, describe:: No - Court Orders Have you had any past court orders for psychiatric treatment?: No Do you have a present court order for psychiatric treatment?: No Problem Checklist - Current Problem Areas Problem List: Depressed mood/sad, Anxiety Discharge Planning Needs - Anticipated Follow-Up [facility] (Name/Phone Number):: [phone] Private Therapist/Psychiatrist:: Family and Caregiver Contacts:: Charlette Rose - mother Release of Information Signed:: Yes Diagnoses - Diagnoses Diagnosis #1:: Major depressive disorder, recurrent, severe without psychosis Diagnosis #2:: Social anxiety disorder (F 40.11) Diagnosis #3:: Generalized anxiety disorder Interpretive Summary - Interpretive Summary Interpretive Summary: Client is a 20-year-old female with a history of MDD and Social Anxiety Disorder. Client has history of two previous suicide attempts with one resulting in hospitalization. Most recent attempt being 01/2021. Client was referred to [facility] by her outpatient psychiatrist due to worsening suicidal ideation and depression, with limited benefit from traditional counseling. Client has a long-standing history of depression and new history of SI beginning in November of this past year in which client had her first overdose attempts. Denies any current plan or intent. Client endorses apathy, low energy, low motivation, hopelessness, anhedonia, rumination, worry, and avoidant behaviors. Client also uses cutting to cope with mental health symptoms and stressors. Client's symptoms have been impacting her ability to function at home, socially, and at work. Treatment Plan Recommendations
== END 2021-03-25 11:49 | disposition home or self-care (01) ==
LOC: BHIOP 09:00
PROVIDERS: PCP Family Medicine; Referring Provider Psychiatry & Neurology Psychiatry; Visit Provider Psychiatry & Neurology Psychiatry
DX: F33.2 Major depressive disorder, recurrent severe without psychotic features (principal); F40.11 Social phobia, generalized; F41.1 Generalized anxiety disorder; Z79.899 Other long term (current) drug therapy; Z91.5 Personal history of self-harm; E03.9 Hypothyroidism, unspecified
CPT/HCPCS: S9480; 90832; 90834; 90853